=== PATIENT | male | born 1965 | race Caucasian/White ===

== ENCOUNTER → 2024-03-08 16:25 | Outpatient (REF) | payer OTHER, SELFPAY | LOC: RAD 16:25 | PROVIDERS: ATTENDING PHYSICIAN Specialist; FAMILY PHYSICIAN Family Medicine | DX: N20.0 Calculus of kidney (principal) | CPT/HCPCS: 74176 ==

== ENCOUNTER 2024-03-29 06:16 | Day surgery (SDC) | payer OTHER, SELFPAY ==
[2024-03-21 06:35] VITALS: BMI 30.9
[2024-03-21 07:43] LABS: Blood Urea Nitrogen 11 mg/dl (9-20); Calcium 9.6 mg/dl (8.4-10.2); Carbon Dioxide 28 mmol/L (22-30); Chloride 103 mmol/L (98-107); Estimated Creatinine Clearance > 125 ml/min; Glucose 99 mg/dl (70-99); Potassium 4.2 mmol/L (3.5-5.1); Sodium 138 mmol/L (135-145); eGFR > 60.00
[2024-03-21 08:09] LABS: INR 1.05; PT 13.7 Sec (11.4-14.6); Urine Albumin Trace (Neg - Trace); Urine Bilirubin Negative (Negative); Urine Character Clear (Clear); Urine Color Yellow; Urine Glucose Negative (Negative); Urine Ketone Negative (Negative); Urine Leukocyte 1+ (Negative); Urine Nitrite Negative (Negative); Urine Occult Blood Trace (Negative); Urine Urobilinogen Negative (Neg - 1+)
[2024-03-21 08:10] LABS: APTT 28.8 Sec (23.4-35.0)
[2024-03-21 08:31] LABS: Urine White Cell 30-40 /HPF (0-5)
[2024-03-21 08:32] LABS: Urine Bacteria Few (Negative)
[2024-03-21 08:33] LABS: Urine Mucus Moderate
--- NOTE | 2024-03-21 16:55 | PTCARENOTE ---
Abn ECG, Dr. Chacon notified, no requests or orders.
[2024-03-29] VITALS (11 sets, daily range): BP systolic 136–172; BP diastolic 84–108; BMI 30.9
[2024-03-29] MEDS: NORMOSOL-R 1000 IV (07:59)
[2024-03-29] MEDS: Pyridium 200 MG PO (10:50)
== END 2024-03-29 12:20 | disposition home or self-care (01) ==
LOC: SDS 06:16
PROVIDERS: ATTENDING PHYSICIAN Specialist; FAMILY PHYSICIAN Family Medicine
DX: N20.2 Calculus of kidney with calculus of ureter (principal)
CPT/HCPCS: 52356; 36415; 80048; 81003; 81015; 85610; 85730; 93005; C1894; C2617

== ENCOUNTER → 2024-05-06 06:24 | Day surgery (SDC) | payer OTHER, SELFPAY | LOC: GI 06:24 | PROVIDERS: ATTENDING PHYSICIAN Internal Medicine Gastroenterology | DX: Z12.11 Encounter for screening for malignant neoplasm of colon (principal); D12.5 Benign neoplasm of sigmoid colon; K63.5 Polyp of colon; K57.30 Diverticulosis of large intestine without perforation or abscess without bleeding; K64.0 First degree hemorrhoids | CPT/HCPCS: 45385; 88305 ==